=== PATIENT | male | born 1990 | race Caucasian/White ===

== ENCOUNTER 2016-10-01 23:48 | Emergency (ER) | payer BC, OTHER ==
[~2016-10-01] VITALS: Ht 190.5 cm; Wt 75.8 kg
[~2016-10-01 23:48] MED LIST: OXYC-57 PO
[2016-10-01 23:49] VITALS: TEMP 36.6; Ht 190.5 cm; Wt 75.8 kg
--- NOTE | 2016-10-02 01:50 | EMERGENCY ROOM VISIT NOTE ---
History First contact with patient: 00:04 Chief Complaint: KNEEPAIN Stated Complaint: INFLAMATION BEHIND KNEE History of Present Illness The patient is a 25 year old male who presents to the Emergency Room with complaints of right posterior knee pain and swelling for the past day. No injury to the area. Patient states the pain radiates up his thigh. No recent trauma. Patient denies chest pain, dyspnea, numbness, tingling, valdez pain, ankle pain, foot pain, hip pain. Patient does have muscular dystrophy. He describes the pain as aching, ranging in severity 4-10 worse with movement and better with rest. Patient states he has a wheelchair that he can use at home. Review of Systems See HPI for pertinent positives & negatives. A total of 10 systems reviewed and were otherwise negative. Past Medical/Surgical History Medical Problems: (1) Lumbar spinal fusion (2) Muscular dystrophy Social History Smoking Status: Never Smoker Alcohol Use: occasionally Drug Use: marijuana Marital Status: single Housing Status: lives with roommate Occupation Status: employed Current/Historical Medications No Active Prescriptions or Reported Meds Allergies Coded Allergies: Amoxicillin (Verified Allergy, Unknown, HIVES, 10/01/16) Cefaclor (Verified Allergy, Unknown, EXTREME DIARRHEA, 10/01/16) Clavulanic Acid (Verified Allergy, Unknown, HIVES, 10/01/16) Physical Exam Vital Signs Date Time Temp Pulse Resp B/P Pulse Ox O2 Delivery O2 Flow Rate FiO2 10/01/16 23:49 36.6 70 20 134/83 97 Room Air Physical Exam VITALS: Vitals are noted on the nurse's note and reviewed by myself. Vital signs stable. GENERAL: Pleasant male, in no acute distress, nondiaphoretic, well-developed well-nourished. SKIN: Capillary reflex less than 2 seconds. HEENT: Normocephalic. PERRLA. EOMI. Nares patent. Mucous membranes moist. Neck is supple without nuchal rigidity. HEART: Regular rate and rhythm without murmurs gallops or rubs. LUNGS: Clear to auscultation bilaterally without wheezes, rales or rhonchi. No retractions or accessory muscle use. MUSCULOSKELETAL: No gross musculoskeletal defects. No pedal edema. No calf tenderness. Right knee nontender to palpation with full range of motion with a posterior knee slightly edematous and tender to palpation. Patient fully extend and flex the leg without difficulties. No right hip, thigh, valdez or ankle pain on exam. Pedal pulses +2 equal present bilaterally. NEURO: Patient was alert and oriented to person place and time. Normal sensation to light and sharp touch. No focal neurological deficits. Medical Decision & Procedures ED Course Prior records reviewed and summarized above. Triage Nursing notes reviewed. Additional history obtained from the family. The patient's history was concerning for swelling and pain in the leg. Differential diagnosis: Etiologies such as DVT, musculoskeletal, infection, joint effusion, trauma, lymphedema, idiopathic, CHF, as well as others were entertained.. Physical examination: The physical examination revealed no signs of infection. Neurovascularly intact. ER treatment provided: Patient was observed On reassessment the patient felt better. Diagnostics interpreted by me: Imaging studies: US concerning for Lara cyst Knee x-ray with no acute fracture or dislocation per my interpretation This appears to be consistent with right popliteal cyst. Patient was neurovascularly and neurologically intact. No fracture. He is advised follow- up orthopedics in a few days or here in the ER sooner for severe pain, numbness , tingling, worsening signs or symptoms or as needed. By the evaluation outlined above emergent etiologies such as DVT, septic joint, trauma, infection , CHF, as well as others were deemed relatively unlikely. The pt informed about the findings as listed above. All questions were answered and pleased with the treatment. Return instructions were outlined and the patient was discharged in stable condition. Referral: The patient was referred to orthopedics for follow-up in 2 to 3 days for a recheck of the current condition. Medical Decision as above Impression Primary Impression: Synovial cyst of popliteal space [Lara], right knee Departure Information Dispostion Home / Self-Care Condition GOOD Prescriptions No Active Prescriptions or Reported Meds Referrals Heidy Betancur M.D. (PCP) Patient Instructions [facility] Additional Instructions Ibuprofen(Motrin, Advil) may be used for fever or pain. Use 600mg every six hours as needed. Take with food. Avoid using more than 2400mg in a 24 hour period. Do not use 2400mg per day for more than three consecutive days without physician direction. Prolonged inappropriate use can lead to stomach upset or ulcers. This medication can be taken if you need to drive, work, or perform activities which may be dangerous when taking narcotic pain medication. (AND/OR) Acetaminophen(Tylenol) may be used for fever or pain. Use 1000mg every six hours as needed. Avoid using more than 3000mg in a 24 hour period. This medication can be taken if you need to drive, work, or perform activities which may be dangerous when taking narcotic pain medication. Ice compresses for 20 minutes at a time four times daily for 2-3 days. Use wheelchair. Rest and elevate your injury. Continue current medications. Return to the ER immediately for any numbness, tingling, severe pain, extreme swelling in the extremity or as needed. Call Orthopedics in 2-3 days to arrange follow up.
[2016-10-02 01:58] VITALS: BP 120/68; PULSE 59; O2SAT 99
--- NOTE | 2016-10-02 07:42 | DIAGNOSTIC IMAGING REPORT ---
RIGHT LOWER EXTREMITY VENOUS DOPPLER HISTORY: right posterior knee swelling Right COMPARISON STUDY: None. FINDINGS: There is normal compressibility, flow, and augmentation within the right lower extremity deep venous system. There is a complex 6.9 x 3.5 cm fluid collection at the popliteal fossa. This likely represents a popliteal cyst. IMPRESSION: No DVT within the right lower extremity. A complex 6.9 x 3.5 cm popliteal fossa fluid collection suggestive of a cyst. Electronically signed by: Darnell Mendez M.D. 10/02/2016 7:40 AM Dictated Date/Time: 10/02/2016 7:39 AM
--- NOTE | 2016-10-02 08:08 | DIAGNOSTIC IMAGING REPORT ---
RIGHT KNEE 3 VIEWS HISTORY: right post knee pain/swelling Right COMPARISON: None. FINDINGS: There is no fracture or dislocation. No knee effusion. Soft tissue prominence at the popliteal fossa. No radiopaque foreign bodies. IMPRESSION: Soft tissue prominence at the popliteal fossa. This is better characterized on the same day venous Doppler study. Electronically signed by: Darnell Mendez M.D. 10/02/2016 8:06 AM Dictated Date/Time: 10/02/2016 8:04 AM
== END 2016-10-02 02:15 | disposition home or self-care (01) ==
LOC: C.EDB 23:49 → C.EDC 10-02 02:15
DX: M71.21 Synovial cyst of popliteal space [Baker], right knee (principal); Z98.1 Arthrodesis status; Z88.1 Allergy status to other antibiotic agents; Z88.8 Allergy status to other drugs, medicaments and biological substances